=== PATIENT | female | born 2000 | race Caucasian/White ===

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

== ENCOUNTER → 2019-01-22 | Day surgery (SDC) | payer OTHER ==
[2019-01-19 09:45] VITALS: BMI 25.2
[~2019-01-22] MED LIST changes: -DEXAMETHASONE SOD PHOSPHATE 10 MG/ML 1 ML VIAL IV ONE; -DEXAMETHASONE SOD PHOSPHATE 4 MG/ML 1 ML VIAL IV ONE; -FAMOTIDINE 20 MG/2 ML VIAL IV ONE; -LACTATED RINGERS 1,000 ML IV SCH; -MIDAZOLAM 2 MG/2 ML VIAL IV PRN; -ONDANSETRON 4 MG/2 ML VIAL IVP ONE; +SODIUM CHLORIDE 0.9% 1,000 ML IV SCH; -ceFAZolin 1,000 MG in DEXTROSE/WATER 1 50ML.BAG IV ONE
[2019-01-22 08:42] VITALS: BP 127/71; RESP 18; TEMP 97.8
[2019-01-22 10:18] VITALS: PULSE 75
--- NOTE | 2019-01-22 13:28 | P.PCN ---
Preoperative Diagnosis: Diagnosis Recurrent presyncope Twelve-lead ECG shows sinus mechanism normal SD narrow QRS, T-wave inversion in lead [address] depression in aVF Tilt table test protocol Baseline blood pressure 116/60 mmHg pacing 184 beats a minute patient was tilted upright at night of 70 per protocol and Zosyn change in heart rate and blood pressure and peak 100 100 beats a minute she was a little lightheaded immediately upon assuming upright position but thereafter the symptoms resolved At the end of the procedure she was laid supine with normal heart rate and blood pressure Impression Normal heart rate and blood pressure response to upright tilting with a very mild increase in heart rate 200 beats a minute. This does not represent a significant increase from her baseline heart rate in the 80s to 90s. No evidence for cardiac syncope
== END ==
LOC: CATHEP 08:10
PROVIDERS: ATTEND Internal Medicine Clinical Cardiac Electrophysiology
DX: R55 Syncope and collapse (principal); R00.0 Tachycardia, unspecified; Z82.49 Family history of ischemic heart disease and other diseases of the circulatory system; Z79.3 Long term (current) use of hormonal contraceptives; Z88.5 Allergy status to narcotic agent; Z88.8 Allergy status to other drugs, medicaments and biological substances
CPT/HCPCS: 93660